=== PATIENT | male | born 1960 | race Caucasian/White ===

== ENCOUNTER 2022-09-27 20:00 | Outpatient (CLI) | payer OTHER, SELFPAY | END 2022-09-27 20:01 | disposition home or self-care (01) | LOC: SLEEP 09-28 04:00 | PROVIDERS: PCP Physician Assistant; Visit Provider Family Medicine | DX: G47.33 Obstructive sleep apnea (adult) (pediatric) (principal) | CPT/HCPCS: 95811 ==

== ENCOUNTER 2023-10-24 10:57 | Outpatient (CLI) | payer OTHER, SELFPAY | END 2023-10-24 10:58 | disposition home or self-care (01) | PROVIDERS: PCP Family Medicine; Visit Provider Family Medicine | DX: R06.02 Shortness of breath (principal) | CPT/HCPCS: 94010; 94726; 94729 ==

== ENCOUNTER 2023-10-29 12:55 | Outpatient (CLI) | payer OTHER, SELFPAY ==
--- NOTE | 2023-10-29 12:57 | XR_ITS ---
WS: [id number] Examination: XR foot LT min 3V* [id number] Reason for Exam: PAIN IN LEFT FOOT Date: October 29, 2023 Comparison: None. Findings: There is mild soft tissue swelling. The bone density is maintained. Minimal calcaneal spurring is identified. There is no displaced fracture. There is no dislocation Calcification is identified between the distal tibia and fibula thought to be related to remote injur y Impression: There is soft tissue swelling. I see no acute displaced fracture.
== END 2023-10-29 12:56 | disposition home or self-care (01) ==
LOC: RADOUTREAD 12:56
PROVIDERS: PCP Family Medicine; Visit Provider Family Medicine
DX: L97.522 Non-pressure chronic ulcer of other part of left foot with fat layer exposed (principal)
CPT/HCPCS: 87070; 87075; 87205

== ENCOUNTER 2023-11-01 07:27 | Outpatient (CLI) | payer OTHER, SELFPAY ==
--- NOTE | 2023-11-01 08:01 | CT_ITS ---
WS: [id number] CT chest w con* [id number] HISTORY: CHRONIC COUGH TECHNIQUE: Axial imaging performed through the thorax. Coronal and sagittal reformats are submitted. All CT scans at [facility] use at least one of these dose optimization techniques: automated exposure control; mA and/or kV adjustment per patient size (includes targeted exams where dose is mat ched to clinical indication); or iterative reconstruction. CONTRAST: Omnipaque 350; 100 mL IV. DLP: 645.66 mGy.cm COMPARISON: Chest radiograph 07/18/2023 Lungs and central airway: Slight elevation of the RIGHT hemidiaphragm. Benign granuloma RIGHT lung ba se. No pneumonia. No suspicious masses. No bronchiectasis or wall thickening identified. Pleura: Normal. No pleural effusion. Heart and pericardium: Moderate cardiomegaly. Circumferential pericardial effusion. Effusion measures 1.9 cm along the anterior heart. There is additional very heavy dense calcification in the coronary arteries. Calcification is noted most significant in the LAD. Additional smaller amount of calcificat ion at the LEFT main coronary artery. Mediastinum and aranza: No mediastinum or hilar adenopathy. Vessels: Mild atherosclerosis aorta. No aneurysm. Normal size pulmonary artery. Chest wall and lower neck: No soft tissue masses. Upper abdomen: Small hiatal hernia. Mild hepatic steatosis. Mild nodularity and thickening of the LEF T adrenal gland. The representing a 1.0 cm LEFT adrenal adenoma. Cortical cyst RIGHT kidney 0.9 cm. Osseous structures: No destructive process. IMPRESSION: 1. No pneumonia or pulmonary mass. 2. Moderate circumferential pericardial effusion measuring up to 1.9 cm over the anterior heart. 3. Very dense heavy calcification in the coronary arteries most significant in the LAD. Additional s maller amount of plaque in the LEFT main coronary artery. 4. No mediastinal or hilar adenopathy. 5. Mild nodularity the LEFT adrenal gland is probably a small adenoma but too small to completely ch aracterize. 6. Recommendation: Evaluation by cardiology. Pericardial effusion and the coronary artery calcificat ions need to be evaluated by cardiology.
[2023-11-01 08:26] LABS: Blood Urea Nitrogen 25 mg/dL (8-23); Glomerular Filtration Rate 51.5 mL/min (90-130)
[2023-11-01] MEDS: iohexol 350 mg/mL 500 mL Btl (per mL) IV (08:30)
== END 2023-11-01 07:28 | disposition home or self-care (01) ==
LOC: RAD 07:30
PROVIDERS: Radiology Neuroradiology; PCP Family Medicine; Visit Provider Family Medicine
DX: I31.39 Other pericardial effusion (noninflammatory) (principal)
CPT/HCPCS: 71260; 82565; 84520; Q9967

== ENCOUNTER 2024-02-14 06:25 | Outpatient (CLI) | payer OTHER, SELFPAY ==
--- NOTE | 2024-02-14 07:00 | USCV_ITS ---
Enmanuel Farrukh Age: 63 Gender: M : 1960 Exam Date: 02/14/2024 07:45 Ordering Phys: Albert Gardner MD Technologist: Ramon Gao Exam Location: [facility] [place] Indication: pericardial effusion BP: 144 / 80 HR: 51 Rhythm: Sinus Technical Quality: Adequate MEASUREMENTS (Male / Female) Normal Values 2D ECHO LV Diastolic Diameter PLAX 4.6 cm 4.2 - 5.9 / 3.9 - 5.3 cm IVS Diastolic Thickness 1.1 cm 0.6 - 1.0 / 0.6 - 0.9 cm IVS Systolic Thickness 1.7 cm LVPW Diastolic Thickness 1.8 cm 0.6 - 1.0 / 0.6 - 0.9 cm LVPW Systolic Thickness 1.8 cm LVOT Diameter 2.0 cm LV Ejection Fraction 2D Teich 62.8 % LV Ejection Fraction MOD 4C 51.1 % LV Ejection Fraction MOD 2C 77.8 % LV Ejection Fraction 2C AL 78.0 % LA Diameter 4.4 cm RA Systolic Volume 4C AL 35.1 ml RA Systolic Volume 4C MOD 38.4 ml LA Sys Volume AL 68.3 cm cubed LA Sys Volume Index AL 29.0 cm cubed/m squared Aorta at Sinotubular Diameter 2.7 cm IVC Diameter 1.5 cm M-MODE LA Ao Ratio MM 1.7 AV Cusp Separation MM 1.0 cm DOPPLER AV Peak Velocity 216.0 cm/s LVOT Peak Velocity 94.0 cm/s AV Area Cont Eq vti 1.5 cm squared AV Area Cont Eq pk 1.4 cm squared MV Peak Velocity 88.0 cm/s MV Area PHT 4.7 cm squared Mitral E to A Ratio 0.8 TR Peak Velocity 362.0 cm/s TR Peak Gradient 52.4 mmHg TR Mean Velocity 296.0 cm/s TR Mean Gradient 36.8 mmHg TR Velocity Time Integral 100.6 cm PV Peak Velocity 93.0 cm/s RV Ejection Time 0.3 s FINDINGS Left Ventricle Normal left ventricular size, systolic function and wall thickness, with no regional wall motion abnormalities. Grade I/IV diastolic dysfunction (abnormal relaxation filling pattern), normal to mildly elevated filling pressures. Left ventricular ejection fraction is estimated at 60 %. Right Ventricle Normal right ventricular size and systolic function. Right Atrium The right atrium is normal in size. Left Atrium Mildly increased left atrial size. Mitral Valve Structurally normal mitral valve. Trace mitral valve regurgitation. Aortic Valve Structurally normal trileaflet aortic valve. Mild aortic valve calcification. Mild aortic valve stenosis, mean gradient 9.8 mmHg, FLOYD 1.5 cm squared. Trace to mild aortic valve regurgitation. Tricuspid Valve Structurally normal tricuspid valve. Trace tricuspid valve regurgitation. Pulmonic Valve Pulmonic valve not well visualized. Pericardium Small pericardial effusion. Echocardiographic findings suggest a non hemodynamically significant pericardial effusion. Aorta Normal ascending aorta dimension. IVC Inferior vena cava not visualized. CONCLUSIONS Normal left ventricular size, systolic function and wall thickness, with no regional wall motion abnormalities. Grade I/IV diastolic dysfunction (abnormal relaxation filling pattern), normal to mildly elevated filling pressures. Left ventricular ejection fraction is estimated at 60 %. Mildly increased left atrial size. Structurally normal mitral valve. Trace mitral valve regurgitation. Structurally normal trileaflet aortic valve. Mild aortic valve calcification. Mild aortic valve stenosis, mean gradient 9.8 mmHg, LFOYD 1.5 cm squared. Trace to mild aortic valve regurgitation. Small pericardial effusion. Echocardiographic findings suggest a non hemodynamically significant pericardial effusion. There are no prior echocardiogram studies to compare. Dr. Albert Gardner MD (Electronically Signed) Final Date: 14 February 2024 15:16 S
== END 2024-02-14 06:26 | disposition home or self-care (01) ==
LOC: RAD 06:32 → CDL 08:12
PROVIDERS: PCP Family Medicine; Visit Provider Internal Medicine Cardiovascular Disease
DX: I10 Essential (primary) hypertension (principal); I31.39 Other pericardial effusion (noninflammatory); I51.7 Cardiomegaly; I35.8 Other nonrheumatic aortic valve disorders; I35.0 Nonrheumatic aortic (valve) stenosis; I35.1 Nonrheumatic aortic (valve) insufficiency
CPT/HCPCS: 93306

== ENCOUNTER → 2024-06-22 11:16 | Outpatient (BNVA) | payer OTHER, SELFPAY | PROVIDERS: PCP Family Medicine; Visit Provider Nurse Practitioner Family | DX: I10 Essential (primary) hypertension (principal) | CPT/HCPCS: 36415; 80048 ==

== ENCOUNTER → 2025-04-13 09:51 | Outpatient (BNVA) | payer OTHER, SELFPAY | PROVIDERS: PCP Family Medicine; Visit Provider Family Medicine | DX: I10 Essential (primary) hypertension (principal) | CPT/HCPCS: 80053; 80061; 84439; 84443; 85025 ==

== ENCOUNTER 2025-04-22 05:46 | Outpatient (CLI) | payer OTHER, SELFPAY ==
--- NOTE | 2025-04-22 06:15 | USCV_ITS ---
Farrukh Singer Age: 65 Gender: M : 1960 Exam Date: 04/22/2025 06:11 Ordering Phys: Mauricio Owens MD ([email or web address]) Technologist: Exam Location: [facility] [place] Indication: cp sob BP: 120 / 75 HR: 64 Rhythm: Sinus Technical Quality: Adequate MEASUREMENTS (Male / Female) Normal Values 2D ECHO LV Diastolic Diameter PLAX 4.6 cm 4.2 - 5.9 / 3.9 - 5.3 cm IVS Diastolic Thickness 1.4 cm 0.6 - 1.0 / 0.6 - 0.9 cm IVS Systolic Thickness 2.2 cm LVPW Diastolic Thickness 1.5 cm 0.6 - 1.0 / 0.6 - 0.9 cm LVPW Systolic Thickness 1.9 cm LVOT Diameter 2.6 cm LV Ejection Fraction 2D Teich 62.0 % LV Ejection Fraction MOD 4C 69.9 % LV Ejection Fraction MOD 2C 74.5 % LV Ejection Fraction 2C AL 77.1 % LA Diameter 4.9 cm RA Systolic Volume 4C AL 84.7 ml RA Systolic Volume 4C MOD 79.3 ml Aorta at Sinotubular Diameter 3.0 cm M-MODE LA Ao Ratio MM 1.6 AV Cusp Separation MM 1.8 cm DOPPLER AV Peak Velocity 206.0 cm/s LVOT Peak Velocity 91.0 cm/s AV Area Cont Eq vti 3.5 cm squared AV Area Cont Eq pk 2.4 cm squared MV Peak Velocity 118.0 cm/s MV Area PHT 3.7 cm squared Mitral E to A Ratio 1.0 TR Peak Velocity 199.0 cm/s TR Peak Gradient 15.8 mmHg TV Peak E Velocity 77.0 cm/s FINDINGS Left Ventricle Normal left ventricular size, systolic function and wall thickness, with no regional wall motion abnormalities. Left ventricular ejection fraction is estimated at 60 %. Grade I/IV diastolic dysfunction (abnormal relaxation filling pattern), normal to mildly elevated filling pressures. Right Ventricle The right ventricle is normal in size and function. Right Atrium The right atrium is normal in size. Left Atrium The left atrium is normal in size. Mitral Valve Mildly thickened mitral valve. No mitral valve stenosis. Mild mitral valve regurgitation. Aortic Valve Moderate aortic valve calcification. No aortic valve stenosis. Trace aortic valve regurgitation. Tricuspid Valve Structurally normal tricuspid valve without significant stenosis or regurgitation. Pulmonary artery systolic pressure is normal. Pulmonic Valve Structurally normal pulmonic valve without significant stenosis. There is no pulmonic regurgitation. Pericardium Normal pericardium without effusion. Aorta Normal ascending aorta dimension. IVC The inferior vena cava appears normal. CONCLUSIONS Normal left ventricular size, systolic function and wall thickness, with no regional wall motion abnormalities. Left ventricular ejection fraction is estimated at 60 %. Grade I/IV diastolic dysfunction (abnormal relaxation filling pattern), normal to mildly elevated filling pressures. Moderate aortic valve calcification. No aortic valve stenosis. Trace aortic valve regurgitation. There is no pericardial effusion. Right atrial pressure is around 5 mm of mercury. Mauricio Owens MD (Electronically Signed) Final Date: 23 April 2025 16:15 S
== END 2025-04-22 05:47 | disposition home or self-care (01) ==
LOC: RAD 05:49
PROVIDERS: PCP Family Medicine; Visit Provider Internal Medicine Cardiovascular Disease
DX: R42 Dizziness and giddiness (principal); I35.0 Nonrheumatic aortic (valve) stenosis
CPT/HCPCS: 93306

== ENCOUNTER → 2025-05-28 14:48 | Outpatient (BNVA) | payer OTHER, SELFPAY | PROVIDERS: PCP Family Medicine; Visit Provider Family Medicine | DX: E03.9 Hypothyroidism, unspecified (principal) | CPT/HCPCS: 84439; 84443 ==